=== PATIENT | male | born 1960 | race Two or more races ===

== ENCOUNTER 2024-09-24 19:55 | Emergency (ER) | payer OTHER ==
[~2024-09-24] VITALS: Ht 177.8 cm; Wt 87.1 kg
[2024-09-24] MEDS ORDERED: MOUNJARO2.5 MG/0.5 SQ (19:59)
[2024-09-24] MEDS ORDERED: LORazepam 2 MG/ML VIAL IM ONE (20:15)
[2024-09-24] MEDS ORDERED: TAMSULOSIN HCL 0.4 MG CAP PO ONE (20:15)
[2024-09-24] MEDS ORDERED: METHYLPREDNISOLONE SOD SUCC 40 MG VIAL IM ONE (20:15)
[2024-09-24] MEDS ORDERED: CEFAZOLIN SODIUM 1,000 MG VIAL IV ONE (20:45)
[2024-09-24] MEDS ORDERED: METHYLPREDNISOLONE SOD SUCC 125 MG VIAL IV ONE (20:45)
[2024-09-24 21:01] LABS: HEMATOCRIT 45.2 % (39.0-48.0); HEMOGLOBIN 15.3 g/dL (13-16.00); MEAN CORPUSCULAR HEMOGLOBIN 28.4 pg (27.00-32.0); MEAN CORPUSCULAR HGB CONC 33.9 g/dl (32.0-36.0); PLATELET COUNT 369 K/uL (150-450); RED BLOOD COUNT 5.38 M/uL (4.00-6.00); RED CELL DISTRIBUTION WIDTH 13.9 % (11.5-14.5)
[2024-09-24] MEDS ORDERED: MORPHINE SULFATE 4 MG/ML VIAL IV ONE (21:45)
[2024-09-24 22:22] LABS: ALBUMIN 4.2 gm/dL (3.4-5.0); BILIRUBIN TOTAL 2.17 mg/dL (0.3-1.2); CALCIUM 9.5 mg/dL (8.5-10.1); CREATININE SERUM 1.27 mg/dL (0.70-1.30); GFR 57.65; GLOBULINA 3.8 G/DL (2.4-3.5); POTASSIUM 3.89 mEq/L (3.5-5.1)
[2024-09-25 00:47] LABS: URINE APPEARANCE Clear; URINE BILIRRUBIN Negative (NEGATIVE); URINE BLOOD Large; URINE COLOR Yellow; URINE GLUCOSE Negative (NEGATIVE); URINE LEUKOCYTE Negative; URINE NITRATE Negative; URINE PROTEIN Trace (NEGATIVE); URINE UROBILINOGEN 0.2 E.U./dl
[2024-09-25 00:50] LABS: URINE BACTERIA 25.7 uL (0.0-1933); URINE EPITHELIAL CELLS 1.5 uL (0.0-38.8); URINE RBC 2361.3 uL (0.0-20.8); URINE WBC 9.6 uL (0.0-23.2)
[2024-09-25 01:06] LABS: URINE CAST 0.14 uL (0.0-1.40); URINE KETONE 40 (NEGATIVE)
== END 2024-09-24 23:38 | disposition home or self-care (01) ==
LOC: ER 19:57
PROVIDERS: General Practice
DX: R33.8 Other retention of urine (principal); N13.30 Unspecified hydronephrosis; N28.1 Cyst of kidney, acquired; K57.30 Diverticulosis of large intestine without perforation or abscess without bleeding; N40.0 Benign prostatic hyperplasia without lower urinary tract symptoms